=== PATIENT | female | born 1970 | race Hispanic/Latino ===

== ENCOUNTER 2018-01-10 12:12 | Outpatient (CLI) | payer OTHER ==
[2018-01-10] MEDS ORDERED: PROVENTIL IH ONE (13:01)
== END 2018-01-10 12:13 | disposition home or self-care (01) ==
LOC: PF 12:12
PROVIDERS: ATTEND Internal Medicine
DX: J44.9 Chronic obstructive pulmonary disease, unspecified (principal); F32.9 Major depressive disorder, single episode, unspecified; M19.90 Unspecified osteoarthritis, unspecified site; Z88.6 Allergy status to analgesic agent
CPT/HCPCS: 94060; 94640